=== PATIENT | female | born 1970 | race Caucasian/White ===

== ENCOUNTER 2023-12-29 20:29 | Emergency (ER) | payer SELFPAY ==
[~2023-12-29] VITALS: Ht 142.2 cm; Wt 48.8 kg
[2023-12-29 21:20] VITALS: BP 140/105; PULSE 107; RESP 22; O2SAT 98
[2023-12-29 21:43] LABS: Basophils # (auto) 0.1 10 ^3/uL (0-0.2); Basophils % (auto) 0.3 % (0.0-2.0); Eosinophils # (auto) 0.1 10 ^3/uL (0-0.8); Eosinophils % (auto) 0.2 % (0.0-7.0); Hematocrit 42.6 % (36.0-46.0); Hemoglobin 13.9 g/dL (12.2-16.2); Lymphocytes # (auto) 1.1 10 ^3/uL (0.4-5.4); Mean Corpuscular Hemoglobin 28.3 pg (28.0-32.0); Mean Corpuscular Hgb Conc. 32.5 g/dL (32.0-36.0); Mean Corpuscular Volume 86.9 fL (80.0-100.0); Monocytes # (auto) 0.9 10 ^3/uL (0-1.3); Monocytes % (auto) 3.9 % (0.0-12.0); Neutrophils # (auto) 20.1 10 ^3/uL (1.6-8.6); Neutrophils % (auto) 90.6 % (37.0-80.0); Red Blood Cells 4.91 10^6/uL (4.0-5.20); Red Cell Distribution Width 16.6 % (11.8-14.3); White Blood Cell 22.1 10^3/uL (4.4-10.8)
[2023-12-29 22:09] LABS: Alanine Aminotransferase 18 U/L (7-40); Albumin 4.2 g/dL (3.2-4.8); Alkaline Phosphatase 124 U/L (46-116); Anion Gap 4 (5-15); Aspartate Aminotransferase 16 U/L (13-40); BUN/Creatinine Ratio 15.3 (10.0-20.0); Bilirubin, Total 0.6 mg/dL (0.2-1.0); Blood Urea Nitrogen 15 mg/dL (9-23); Calcium 9.7 mg/dL (8.5-10.1); Carbon Dioxide 19 mmol/L (20-30); Chloride 112 mmol/L (98-107); Glucose 117 mg/dL (74-106); Potassium 3.3 mmol/L (3.5-5.1); Sodium 135 mmol/L (136-145); Total Protein 6.9 g/dL (5.7-8.2)
== END 2023-12-29 23:16 | disposition left against medical advice (07) ==
LOC: ER 20:29
DX: R10.9 Unspecified abdominal pain (principal); F11.90 Opioid use, unspecified, uncomplicated; Z87.442 Personal history of urinary calculi; Z53.21 Procedure and treatment not carried out due to patient leaving prior to being seen by health care provider
CPT/HCPCS: 36415; 80053; 83605; 85025